=== PATIENT | female | born 1945 | race Caucasian/White ===

== ENCOUNTER 2019-05-12 11:06 | Outpatient (CLI) | payer MEDICARE, OTHER | END 2019-05-12 11:11 | LOC: LAB 11:06 | PROVIDERS: ATTEND Nurse Practitioner Family | DX: Z51.81 Encounter for therapeutic drug level monitoring (principal); Z79.01 Long term (current) use of anticoagulants; I48.20 Chronic atrial fibrillation, unspecified | CPT/HCPCS: 36415; 85610 ==

== ENCOUNTER 2019-05-19 11:33 | Outpatient (CLI) | payer MEDICARE, OTHER | END 2019-05-19 11:38 | LOC: LAB 11:33 | PROVIDERS: ATTEND Nurse Practitioner Family | DX: Z51.81 Encounter for therapeutic drug level monitoring (principal); Z79.01 Long term (current) use of anticoagulants; I48.20 Chronic atrial fibrillation, unspecified | CPT/HCPCS: 36415; 85610 ==

== ENCOUNTER 2019-06-02 11:38 | Outpatient (CLI) | payer MEDICARE, OTHER | END 2019-06-02 11:43 | LOC: LAB 11:38 | PROVIDERS: ATTEND Nurse Practitioner Family | DX: I48.20 Chronic atrial fibrillation, unspecified (principal); Z79.01 Long term (current) use of anticoagulants | CPT/HCPCS: 36415; 85610 ==